=== PATIENT | female | born 1970 | race Caucasian/White ===

== ENCOUNTER → 2017-01-26 | Outpatient (CLI) | payer MEDICARE ==
[~2017-01-26] MED LIST: ALL DAY ALLERGY10 M3 PO; ALLEGRA ALLERG180 MG PO; ASPIR 8181 MG PO; CYMBALTA60 MG PO; DULERA 200 MCG8.8 GM INH; GLUCOTROL XL10 MG PO; HYDROCHLOROTHIA25 MG PO; IMITREX50 MG PO; INVOKAMET 150-1 EACH PO; LANTUS SOL100 UNIT/1 SQ; LIPITOR TAB 2020 MG PO; LOVAZA1 GM PO; METOPROLOL SUCC25 MG PO; NEURONTIN800 MG PO; NITROGLYCERIN0.4 MG SL; NOVOLOG FL100 UNIT/1 SQ; NOVOLOG MI100 UNIT/1 SC; OMEPRAZOLE40 MG PO; OXYBUTYNIN CHLOR5 MG PO; PEXEVA40 MG PO; PREDNISONE10 MG PO; PRILOSEC OTC20 MG PO; PROVENTIL HFA 61 INH INH; QUETIAPINE FUM100 MG PO; ROBAXIN 750 MG750 MG PO; TRICOR 145 MG145 MG PO; VALIUM 5 MG TAB5 MG PO; VISTARIL25 MG PO; VITAMIN D250000 UNIT PO; ZOFRAN 4 MG TAB4 MG PO; ZUPLENZ4 MG PO
== END ==
LOC: HEART 5 10:59
DX: R07.9 Chest pain, unspecified (principal)
CPT/HCPCS: 94060; 94729

== ENCOUNTER → 2017-01-28 | Outpatient (CLI) | payer MEDICARE | LOC: SLEEP-COR 21:30 | DX: G47.33 Obstructive sleep apnea (adult) (pediatric) (principal) | CPT/HCPCS: 95810 ==

== ENCOUNTER 2017-02-26 21:51 | Emergency (ER) | payer MEDICARE ==
[~2017-02-26 21:51] MED LIST changes: -ALL DAY ALLERGY10 M3 PO; -ASPIR 8181 MG PO; -DULERA 200 MCG8.8 GM INH; -IMITREX50 MG PO; -INVOKAMET 150-1 EACH PO; -LOVAZA1 GM PO; -METOPROLOL SUCC25 MG PO; -NITROGLYCERIN0.4 MG SL; -NOVOLOG MI100 UNIT/1 SC; -OMEPRAZOLE40 MG PO; -OXYBUTYNIN CHLOR5 MG PO; -PREDNISONE10 MG PO; -PROVENTIL HFA 61 INH INH; -VITAMIN D250000 UNIT PO; -ZOFRAN 4 MG TAB4 MG PO
[2017-08-14] MEDS ORDERED: OMEPRAZOLE40 MG PO (23:05)
[2017-08-14] MEDS ORDERED: PROVENTIL HFA 61 INH INH (23:06)
[2017-08-14] MEDS ORDERED: DULERA 200 MCG8.8 GM INH (23:07)
[2017-08-14] MEDS ORDERED: ALL DAY ALLERGY10 M3 PO (23:08)
[2017-08-14] MEDS ORDERED: PREDNISONE10 MG PO (23:09)
[2017-08-14] MEDS ORDERED: ZOFRAN 4 MG TAB4 MG PO (23:09)
[2017-08-14] MEDS ORDERED: METOPROLOL SUCC25 MG PO (23:09)
[2017-08-14] MEDS ORDERED: INVOKAMET 150-1 EACH PO (23:10)
[2017-08-14] MEDS ORDERED: OXYBUTYNIN CHLOR5 MG PO (23:11)
[2017-08-14] MEDS ORDERED: NOVOLOG MI100 UNIT/1 SC (23:12)
[2017-08-14] MEDS ORDERED: LOVAZA1 GM PO (23:13)
[2017-08-14] MEDS ORDERED: VITAMIN D250000 UNIT PO (23:15)
[2017-08-14] MEDS ORDERED: IMITREX50 MG PO (23:16)
[2017-08-15] MEDS ORDERED: LIPITOR TAB 2020 MG PO (11:06)
[2017-08-15] MEDS ORDERED: NITROGLYCERIN0.4 MG SL (11:07)
[2017-08-15] MEDS ORDERED: ASPIR 8181 MG PO (11:07)
== END 2017-02-27 02:18 | disposition home or self-care (01) ==
LOC: ER1 21:51
DX: M25.532 Pain in left wrist (principal); G89.29 Other chronic pain; L02.01 Cutaneous abscess of face; E11.9 Type 2 diabetes mellitus without complications; I10 Essential (primary) hypertension; F17.210 Nicotine dependence, cigarettes, uncomplicated; Z79.4 Long term (current) use of insulin; Z79.899 Other long term (current) drug therapy
CPT/HCPCS: 73110; 99283

== ENCOUNTER 2021-03-31 23:06 | Emergency (ER) | payer OTHER ==
[~2021-03-31 23:06] MED LIST changes: +ALL DAY ALLERGY10 M3 PO; +ASPIR 8181 MG PO; +BUSPAR 10MG10 MG PO; +DULERA 200 MCG8.8 GM INH; +GLUCOPHAGE1000 MG PO; +IMITREX50 MG PO; +INVOKAMET 150-1 EACH PO; +JARDIANCE10 MG PO; +LEVAQUIN500 MG PO; +LOVAZA1 GM PO; +METOPROLOL SUCC25 MG PO; +NAPROSYN500 MG PO; +NITROGLYCERIN0.4 MG SL; +NOVOLOG MI100 UNIT/1 SC; +OMEPRAZOLE40 MG PO; +OXYBUTYNIN CHLOR5 MG PO; +PAXIL40 MG PO; +PREDNISONE10 MG PO; +PROAIR HFA8.5 GM INH; +PROTONIX40 M1 PO; +PROTONIX40 MG PO; +PROVENTIL HFA 61 INH INH; +STEGLATRO5 MG PO; +SYMBICORT 80-10.2 GM INH; +TRESIBA FL100 UNIT/1 SC; +VICTOZA 3-0.6 MG/0.1 SQ; +VITAMIN D250000 UNIT PO; +XARELTO10 MG PO; +ZANTAC150 MG PO; +ZOFRAN 4 MG TAB4 MG PO
[2021-04-01] MEDS ORDERED: CEPHALEXIN500 MG PO (00:45)
[2021-04-01] MEDS ORDERED: LODINE CAP 300300 MG PO (00:45)
[2021-04-01] MEDS ORDERED: BACTRIM DS TAB1 EACH PO (00:45)
== END 2021-04-01 01:30 | disposition home or self-care (01) ==
LOC: ER1 23:06
DX: L02.811 Cutaneous abscess of head [any part, except face] (principal); L03.811 Cellulitis of head [any part, except face]; I25.10 Atherosclerotic heart disease of native coronary artery without angina pectoris; I25.2 Old myocardial infarction; E11.9 Type 2 diabetes mellitus without complications; I10 Essential (primary) hypertension; J44.9 Chronic obstructive pulmonary disease, unspecified; F17.210 Nicotine dependence, cigarettes, uncomplicated; Z90.49 Acquired absence of other specified parts of digestive tract; Z95.5 Presence of coronary angioplasty implant and graft
CPT/HCPCS: 99282

== ENCOUNTER 2021-04-07 00:21 | Emergency (ER) | payer OTHER ==
[~2021-04-07 00:21] MED LIST changes: +BACTRIM DS TAB1 EACH PO; +CEPHALEXIN500 MG PO; +LODINE CAP 300300 MG PO
[2021-04-07] MEDS ORDERED: ZOFRAN ODT 4 MG4 MG PO (01:59)
[2021-04-07] MEDS ORDERED: LODINE CAP 300300 MG PO (01:59)
[2021-04-07] MEDS ORDERED: PERCOCET 5/325 T1 EA PO (02:00)
== END 2021-04-07 02:40 | disposition home or self-care (01) ==
LOC: ER1 00:21
DX: S92.512A Displaced fracture of proximal phalanx of left lesser toe(s), initial encounter for closed fracture (principal); E11.9 Type 2 diabetes mellitus without complications; J44.9 Chronic obstructive pulmonary disease, unspecified; I10 Essential (primary) hypertension; E78.5 Hyperlipidemia, unspecified; Z90.89 Acquired absence of other organs; F17.210 Nicotine dependence, cigarettes, uncomplicated; W22.8XXA Striking against or struck by other objects, initial encounter; Y92.009 Unspecified place in unspecified non-institutional (private) residence as the place of occurrence of the external cause
CPT/HCPCS: 73630; 99283

== ENCOUNTER 2021-05-05 22:23 | Emergency (ER) | payer OTHER ==
[~2021-05-05 22:23] MED LIST changes: +PERCOCET 5/325 T1 EA PO; +ZOFRAN ODT 4 MG4 MG PO
[2021-05-05 22:57] LABS: RED BLOOD COUNT 5.3 M/UL (4.00-5.10); WHITE BLOOD COUNT 25.9 K/UL (4.5-11.0)
[2021-05-05 23:16] LABS: BUN/CREATININE RATIO 12 (0-10)
[2021-05-06] MEDS ORDERED: ZOFRAN4 MG PO (03:44)
[2021-05-06] MEDS ORDERED: PYRIDIUM200 MG PO (03:44)
[2021-05-06] MEDS ORDERED: OMNICEF 300 MG300 MG PO (03:44)
== END 2021-05-06 04:47 | disposition home or self-care (01) ==
LOC: ER1 22:23
PROVIDERS: Physician Assistant Medical
DX: M54.5 Low back pain (principal); R50.9 Fever, unspecified; E86.0 Dehydration; E11.9 Type 2 diabetes mellitus without complications; J44.9 Chronic obstructive pulmonary disease, unspecified; Z90.89 Acquired absence of other organs
CPT/HCPCS: 80053; 81001; 83605; 85025; 87040; 96374; 96375; 99284; J0696; J2270; J2405; J7030; Q9967

== ENCOUNTER 2021-05-08 12:46 | Emergency (ER) | payer OTHER ==
[~2021-05-08 12:46] MED LIST changes: +OMNICEF 300 MG300 MG PO; +PYRIDIUM200 MG PO; +ZOFRAN4 MG PO
[2021-05-08 14:15] LABS: RED BLOOD COUNT 5.01 M/UL (4.00-5.10); WHITE BLOOD COUNT 19.7 K/UL (4.5-11.0)
[2021-05-08 14:28] LABS: BUN/CREATININE RATIO 14 (0-10)
== END 2021-05-08 16:25 | disposition home or self-care (01) ==
LOC: ER1 12:46
PROVIDERS: Physician Assistant
DX: R10.30 Lower abdominal pain, unspecified (principal); R30.0 Dysuria; R39.198 Other difficulties with micturition; J44.9 Chronic obstructive pulmonary disease, unspecified; I10 Essential (primary) hypertension; F17.200 Nicotine dependence, unspecified, uncomplicated; Z79.899 Other long term (current) drug therapy
CPT/HCPCS: 51701; 80053; 81001; 85025; 87086; 99284